=== PATIENT | female | born 1965 | race African-American/Black ===

== ENCOUNTER 2020-11-18 07:50 | Outpatient (CLI) | payer BC ==
[2020-11-19 01:12] LABS: SARS-CoV-2 PCR by NAA Not Detected (NotDetected)
== END 2020-11-18 07:51 | disposition home or self-care (01) ==
LOC: CSHLAB 07:50
PROVIDERS: ATTEND Internal Medicine Gastroenterology
DX: Z20.822 Contact with and (suspected) exposure to COVID-19 (principal)
CPT/HCPCS: U0003; U0005

== ENCOUNTER → 2020-11-21 | Day surgery (SDC) | payer BC ==
[2020-11-20 12:01] VITALS: BMI 34.7
[~2020-11-21] MED LIST: Glycopyrrolate 0.2 MG/ML 5 ML SYRINGE ONE; Lidocaine 1% MPF 2 ML VIAL ONE; PROPOFOL 20 ML ONE; PROPOFOL 40 ML ONE; Propofol 1,000 MG/100 ML VIAL IV ONE
[2020-11-21 13:27] LABS: Anion Gap 18 mmol/L (10-20); BUN (Urea Nitrogen) 37 mg/dL (9.8-20.1); Calc. Creatinine Clearance 14 mL/min (70-130); Calcium 10.5 mg/dL (7.8-10.44); Carbon Dioxide 28 mmol/L (22-29); Chloride 93 mmol/L (98-107); Glucose 166 mg/dL (70-105); Potassium 4.4 mmol/L (3.5-5.1); Sodium 135 mmol/L (136-145)
== END ==
LOC: CSHSDC 12:18
PROVIDERS: ATTEND Internal Medicine Gastroenterology
PROC: 0DBL8ZZ Excision of Transverse Colon, Via Natural or Artificial Opening Endoscopic (ICD-10-PCS; principal; 2020-11-21)
DX: Z12.11 Encounter for screening for malignant neoplasm of colon (principal); D12.3 Benign neoplasm of transverse colon; E11.9 Type 2 diabetes mellitus without complications; E78.5 Hyperlipidemia, unspecified; I12.0 Hypertensive chronic kidney disease with stage 5 chronic kidney disease or end stage renal disease; N18.6 End stage renal disease
CPT/HCPCS: 36415; 36416; 80048; 88305; J2704

== ENCOUNTER 2021-12-04 09:06 | Day surgery (SDC) | payer BC, MEDICARE ==
[2021-12-03 10:11] VITALS: BMI 35.2
[2021-12-04] MEDS ORDERED: PROPOFOL 40 ML ONE (10:13)
[2021-12-04] MEDS ORDERED: PROPOFOL 20 ML ONE (11:08)
== END 2021-12-04 11:42 | disposition home or self-care (01) ==
LOC: CSHSDC 09:06
PROVIDERS: ATTEND Internal Medicine Gastroenterology
PROC: 0DBL8ZZ Excision of Transverse Colon, Via Natural or Artificial Opening Endoscopic (ICD-10-PCS; principal; 2021-12-04)
DX: D12.3 Benign neoplasm of transverse colon (principal); K64.9 Unspecified hemorrhoids; I12.0 Hypertensive chronic kidney disease with stage 5 chronic kidney disease or end stage renal disease; E11.22 Type 2 diabetes mellitus with diabetic chronic kidney disease; N18.6 End stage renal disease; D63.1 Anemia in chronic kidney disease; E78.5 Hyperlipidemia, unspecified; Z79.899 Other long term (current) drug therapy
CPT/HCPCS: 88305; J2704

== ENCOUNTER 2024-01-20 13:53 | Outpatient (CLI) | payer MEDICARE, BC | END 2024-01-20 13:54 | disposition home or self-care (01) | LOC: CSHULT 13:53 | PROVIDERS: ATTEND Internal Medicine | DX: R01.1 Cardiac murmur, unspecified (principal); I35.2 Nonrheumatic aortic (valve) stenosis with insufficiency; I51.9 Heart disease, unspecified | CPT/HCPCS: 93306 ==

== ENCOUNTER 2025-02-13 12:52 | Day surgery (SDC) | payer MEDICARE, BC ==
[2025-02-13] MEDS ORDERED: Sodium Bicarbonate 2.5 MEQ/5 ML SDV ONE (13:19)
[2025-02-13 13:32] VITALS: BP 159/74; TEMP 96.3
== END 2025-02-13 14:34 | disposition home or self-care (01) ==
LOC: CSHULT 12:52
PROVIDERS: ATTEND Otolaryngology Plastic Surgery within the Head & Neck
PROC: 0GBH0ZX Excision of Right Thyroid Gland Lobe, Open Approach, Diagnostic (ICD-10-PCS; principal; 2025-02-13)
DX: E04.1 Nontoxic single thyroid nodule (principal)
CPT/HCPCS: 10005; 88173